=== PATIENT | male | born 1950 | race Caucasian/White ===

== ENCOUNTER 2016-07-11 17:00 | Emergency (ER) | payer OTHER ==
--- NOTE | ~2016-07-11 | EKG ---
PATIENT: PERLA BURLESON UNIT #: [id number] Ventricular Rate: 68 BPM Atrial Rate: 68 BPM P-R Interval: 168 ms QRS Duration: 104 ms Q-T Interval: 412 ms QTC Calculation(Bezet): 438 ms P [place]: 51 degrees Calculated R [place]: 60 degrees Calculated T [place]: 35 degrees Diagnosis Line: Normal sinus rhythm Diagnosis Line: Normal ECG Diagnosis Line: No previous ECGs available Diagnosis Line: Confirmed by DEON PIERRE MD ([id number]) on Diagnosis Line: 07/12/2016 4:28:24 PM INTERPRETING MD: GABBY BELL
--- NOTE | ~2016-07-11 | CT16 ---
[facility] A Service of [facility] RADIOLOGY TEXT RESULTS PATIENT: PERLA BURLESON LOCATION: [facility] : 54 UNIT #: [id number] AGE: [address]: Josephine Min MD SEX: M ORDER DR: [id number] [facility] [address] [place], [place] [address] [id number] E MR#: [id number] Acc #: [id number] NAME: PERLA BURLESON : 1950 SEX: M STUDY DATE/TIME: 07/11/2016 21:58 UNIT: [facility] ROOM: STUDY DESCRIPTION: CT Angio Chest for PE Attending Physician: Josephine Min M.D. Ordering Physician: Justo Mccloud M.D. Primary Care Physician: Mao Carson M.D. MEDICAL IMAGING REPORT This report is preliminary unless electronic signature is present EXAM CTA chest INDICATIONS Shortness of air for 1 day. Elevated D-dimer. TECHNIQUE CT angiography of the chest utilizing 80 mL Isovue-370 IV contrast. Coronal 3-D MIP reconstructions and standard sagittal reconstructions were obtained. This CT exam was performed with one or more of the following radiation dose reduction techniques: automatic control, adjustment of mA and/or kV according to patient size, and iterative reconstruction. COMPARISON Chest radiograph dated 07/11/2016 and 07/18/2005. FINDINGS No pulmonary embolus. No thoracic aortic aneurysm or dissection. The heart is enlarged. No pericardial or pleural effusion. No focal consolidation. There is mild atelectasis in the lung bases. There is some mild pleural lipomatosis. Limited images upper abdomen were obtained. The liver appears morphologically cirrhotic with atrophy of the right hepatic lobe and hypertrophy of the caudate and left hepatic lobe. Spleen is borderline enlarged measuring up to 14 cm. Patient has a gastric band. Orientation of the band is unremarkable. No acute osseous abnormalities. [facility] A Service of [facility] RADIOLOGY TEXT RESULTS PATIENT: PERLA BURLESON LOCATION: [facility] : 54 UNIT #: [id number] AGE: [address]: Josephine Min MD SEX: M ORDER DR: IMPRESSION 1. Negative for pulmonary embolus. 2. Atelectasis in the lung bases, otherwise, no acute findings in the chest. Dictated by... Carroll Ramos M.D. THIS IS AN ELECTRONICALLY VERIFIED REPORT Carroll Ramos M.D. at 07/12/2016 11:15 PM RPChelsi/herb TD: 07/12/2016 03:15 JOB #: [id number] MEDICAL IMAGING REPORT Page 1 of 1 COPY
--- NOTE | ~2016-07-11 | CR72 ---
[facility] A Service of [facility] RADIOLOGY TEXT RESULTS PATIENT: PERLA BURLESON LOCATION: [facility] : 54 UNIT #: [id number] AGE: [address]: Josephine Min MD SEX: M ORDER DR: [id number] [facility] [address] [place], [place] [address] [id number] E MR#: [id number] Acc #: [id number] NAME: PERLA BURLESON : 1950 SEX: M STUDY DATE/TIME: 07/11/2016 19:21 UNIT: [facility] ROOM: STUDY DESCRIPTION: CR Chest Single View Portable Attending Physician: Josephine Min M.D. Ordering Physician: Justo Mccloud M.D. Primary Care Physician: Mao Carson M.D. MEDICAL IMAGING REPORT This report is preliminary unless electronic signature is present EXAM Portable chest. HISTORY Chest pressure, shortness of air, onset today. COMPARISON 07/18/2005 FINDINGS Portable view of the chest demonstrates no acute cardiopulmonary abnormality. Mild cardiomegaly and aortic atherosclerotic changes. Postsurgical changes noted in the lower cervical spine from previous cervical fusion. Laminotomy changes are also noted. Dictated by... Rachael Hernandez M.D. THIS IS AN ELECTRONICALLY VERIFIED REPORT Rachael Hernandez M.D. at 07/14/2016 6:07 AM Denys TD: 07/11/2016 23:48 JOB #: [id number] MEDICAL IMAGING REPORT Page 1 of 1 COPY
[~2016-07-11 17:00] MED LIST: ANEXSIA 7.5/3251 TA1 PO; ARTHRITIS MED; ARTHROTEC EC 51 EACH PO; AZOR 5/40 MG TA1 TAB PO; BLOOD PRESSURE MED; BUSPIRONE HCL15 MG PO; KLOR-CON PO; LASIX20 MG PO; LISINOPRIL-HCTZ1 T21 PO; PHENERGAN25 MG PO; PRAMIPEXOLE0.125 MG PO; TRAMADOL HCL50 M1 PO; VOLTAREN75 MG PO; ZOLPIDEM TARTRA10 MG PO
[2016-07-11 17:34] LABS: BASOPHIL% 0.5 % (0-2.5); DIFF IND NO; EOSINOPHIL# 0.2 X10e3 (0-0.7); EOSINOPHIL% 1.9 % (0.0-7.0); HEMATOCRIT 45.4 % (38.0-50.0); LYMPHOCYTE# 1.2 X10e3 (1.0-3.5); LYMPHOCYTE% 12.7 % (17.0-45.0); MEAN CELL VOLUME 99.6 FL (83-96); MEAN CORPUSCULAR HEMOGLOBIN 32.8 PG (28-34); MEAN CORPUSCULAR HGB CONC 32.9 g/dL (30-36); MONOCYTE# 0.5 X10e3 (0-1.0); MONOCYTE% 5.5 % (3.0-12.0); NEUTROPHIL# 7.6 X10e3 (1.5-7.1); NEUTROPHIL% 79.4 % (40-75); PLATELET COUNT 159 X10e3 (140-420); RED BLOOD COUNT 4.56 X10e (3.90-5.60); RED CELL DISTRIBUTION WIDTH 13.6 % (11.0-15.5); WHITE BLOOD COUNT 9.6 X10e3 (4.0-10.5)
[2016-07-11 18:04] LABS: BILIRUBIN, DIRECT 0.1 mg/dL (0.0-0.2); BILIRUBIN,INDIRECT 0.5 mg/dL (0.0-0.9); BILIRUBIN,TOTAL 0.6 mg/dL (0.2-2.0); CALCIUM SERUM 8.9 mg/dL (8.4-10.2); GLOM FILT RATE Estimated 79.8 mL/min (>60); POTASSIUM 3.6 mmol/L (3.5-5.1); PROTEIN TOTAL SERUM 7.5 g/dL (6.0-8.3)
[2016-07-11 19:05] LABS: POC - CKMB 2.8 ng/mL (0.0-7.9); POC - TROPONIN <0.05 ng/mL (<=0.05)
[2016-07-11 23:49] LABS: POC - CKMB 2.4 ng/mL (0.0-7.9); POC - TROPONIN <0.05 ng/mL (<=0.05)
== END 2016-07-12 00:19 | disposition home or self-care (01) ==
LOC: CED 17:00
PROVIDERS: Emergency Medicine
DX: R07.89 Other chest pain (principal); R06.02 Shortness of breath; M25.571 Pain in right ankle and joints of right foot; I10 Essential (primary) hypertension; Z88.8 Allergy status to other drugs, medicaments and biological substances
CPT/HCPCS: 36415; 71010; 71275; 80048; 80076; 82553; 83880; 84484; 85025; 85379; 93005; 94640; 96374; 96375; 99284; J2250; J2930; Q9967